=== PATIENT | male | born 1950 | race Caucasian/White ===

== ENCOUNTER 2018-02-02 17:51 | Emergency (ER) | payer MEDICARE ==
[~2018-02-02] VITALS: Ht 182.9 cm; Wt 90.0 kg
[~2018-02-02 17:51] MED LIST: ADVIL MIGRAI200 M1 PO; ASPIRIN EC81 MG PO; BL IBUPROFEN200 MG; EQL GARLIC OD1000 MG PO; GARLIC OIL500 MG PO; GLUCOSAMINE CHO1 CA2 PO; GNP RED YEAST RICE PO; LIPITOR40 M1 PO; MED FOR CHOLESTEROL; MENS MULTI PO; MULTI VIT PO; VITAMIN B CO PO
[2018-02-02] MEDS ORDERED: MOTRIN400 MG PO (20:02)
[2018-02-02] MEDS ORDERED: CEPHALEXIN500 M1 PO (20:02)
[2018-02-02] MEDS ORDERED: BACTRIM DS1 TAB PO (20:02)
[2018-02-02] MEDS ORDERED: HYDROCO/APAP1 TA9 PO (20:02)
[2018-02-02 20:40] VITALS: BP 162/88
== END 2018-02-02 20:40 | disposition home or self-care (01) ==
LOC: ED 17:51
PROC: 0HQFXZZ Repair Right Hand Skin, External Approach (ICD-10-PCS; principal; 2018-02-02)
DX: S61.310A Laceration without foreign body of right index finger with damage to nail, initial encounter (principal); S61.011A Laceration without foreign body of right thumb without damage to nail, initial encounter; W31.2XXA Contact with powered woodworking and forming machines, initial encounter; Y93.89 Activity, other specified; Y92.009 Unspecified place in unspecified non-institutional (private) residence as the place of occurrence of the external cause

== ENCOUNTER 2022-03-21 07:42 | Emergency (ER) | payer MEDICARE ==
[~2022-03-21] VITALS: Ht 182.9 cm; Wt 88.0 kg
[~2022-03-21 07:42] MED LIST changes: +BACTRIM DS1 TAB PO; +CEPHALEXIN500 M1 PO; +HYDROCO/APAP1 TA9 PO; +MOTRIN400 MG PO
[2022-03-21 07:51] VITALS: BP 145/90
[2022-03-21 08:01] VITALS: BP 143/69
[2022-03-21 08:18] LABS: HEMATOCRIT 55.4 % (39.0-50.0); IMMATURE GRANULOCYTES 0.6 % (0.0-5.0); MEAN CELL VOLUME 69.3 fL CALC (80.0-100.0); MEAN CORPUSCULAR HGB CONC 28.9 g/dL CAL (32.0-36.0); NEUT# 14.08 thou/uL (1.82-7.42); RED BLOOD COUNT 7.99 mill/uL (4.70-6.10); RED CELL DISTRI WIDTH 24.6 % (11.5-15.5)
[2022-03-21 08:36] LABS: ALBUMIN 3.6 g/dL (3.2-5.0); ALKALINE PHOSPHATASE 179 u/l (38-126); BUN 9 mg/dL (8-23); BUN/CREATININE RATIO 14 (12-20 (CALC)); CARBON DIOXIDE 26 mmol/l (22-30); CHLORIDE 104 mmol/l (95-108); CREATININE 0.6 mg/dL (0.7-1.3); GFR > 60 ML/MIN (>=60 (CALC)); GFR FOR AFR.AMER. > 60 ML/MIN (>=60 (CALC)); SODIUM 139 mmol/l (137-146)
[2022-03-21 08:45] LABS: ANION GAP 13 (6-22 (CALC)); SGOT/AST 47 u/l (19-48)
[2022-03-21 08:50] VITALS: BP 144/70
[2022-03-21 09:01] VITALS: BP 138/67
[2022-03-21 11:40] VITALS: BP 138/67
== END 2022-03-21 11:40 ==
LOC: ED 07:42
PROVIDERS: Family Medicine
DX: S72.002A Fracture of unspecified part of neck of left femur, initial encounter for closed fracture (principal); R91.1 Solitary pulmonary nodule; W18.39XA Other fall on same level, initial encounter; Y92.009 Unspecified place in unspecified non-institutional (private) residence as the place of occurrence of the external cause; Z20.822 Contact with and (suspected) exposure to COVID-19